=== PATIENT | male | born 1980 | race Caucasian/White ===

== ENCOUNTER 2019-01-25 18:03 | Emergency (ER) | payer SELFPAY ==
[2019-01-25 18:12] VITALS: BP 131/87; PULSE 87; RESP 16; TEMP 36.7; O2SAT 99
--- NOTE | 2019-01-25 18:29 | ED.GENADUL_ITS ---
Discharge Plan Disposition Patient Disposition: HOME Condition: Good Discharge Details Chief Complaint: Abd Prob Clinical Impression: Abdominal pain, epigastric Primary Care Provider: Unknown,Unknown ED Provider: Nils Newton [place] Meds and New Rx's Prescriptions: New metoclopramide HCl 10 mg tablet 10 mg PO Q6H PRN (Reason: nausea and bloating) Qty: 40 RF: 0 omeprazole 40 mg capsule,delayed release(DR/EC) 40 mg PO DAILY Qty: 30 RF: 0 sucralfate [Carafate] 1 gram tablet 1 gm PO QACHS Qty: 120 RF: 0 Discharge Instructions Instructions: Epigastric Pain (ED) Additional Instructions: Work-up here tonight is unremarkable. Laboratory studies, EKG, chest x-ray, abdominal pelvic CT scan show nothing acute. Suspect your epigastric pain is acid related gastric disease. We will start you on medication to treat this and refer you to surgery for endoscopy. You should also follow-up with primary care next week to see how the medications are working. Return to the emergency department if you develop fever, worsening pain, vomiting blood, black or bloody stool. Referrals: [facility] [Provider Group] Pretty Camacho MD [ [facility] STAFF PHYSICIAN] - Medical Decision Making <Nannette Barrow DO - Last Filed: 01/25/19 20:13> 1820 -- 38yo M w/ no past medical history presents with upper abdominal pain for the past 3 weeks. Intermittent radiation around to his back down into his groin. He was seen at a clinic recently for the same symptoms but states he had blood work which noted his liver and gallbladder to be normal. He has not had any imaging. Pain worse with eating. He does admit to heavy alcohol use for years but states he stopped this several weeks ago. Vitals within normal limits. He has epigastric and right upper quadrant tenderness. Lungs clear. exam not done on my evaluation prior to imaging. Differential diagnosis includes cholelithiasis, cholecystitis, peptic ulcer disease, gastritis, esophagitis, GERD, pancreatitis. Will place an IV, bolus IV fluids, screening labs and CT abdomen and pelvis. We will also give a dose of Pepcid, Zofran and GI cocktail and reassess. 1999 --Case endorsed to Dr. Newton to follow-up on labs and imaging and final disposition. Medical Records Medical records reviewed: Yes I reviewed the patient's medical records. <Nils Newton MD - Last Filed: 01/25/19 22:51> Patient signed out to me from Dr. Barrow. I did interview the patient. He has epigastric abdominal pain that has been present for about 3 weeks now. He has associated nausea and bloating. Describes the pain as burning. At times radiates into the lower abdomen, upper chest, shoulders. Also has back pain but I think this is a separate issue. He has seen primary care as well as an ED visit to [facility]. He is not on anything currently. He gave up drinking 7 weeks ago. He does still smoke. His exam for me is benign. His laboratory studies are unremarkable including liver function, lipase, troponin. His EKG is normal. A chest x-ray is normal. CT scan of the abdomen pelvis shows an enlarged liver as well as some cysts on the right kidney otherwise unremarkable and nothing acute. At signout Dr. Barrow felt this was likely acid related gastric disease. I am in agreement. She had given a GI cocktail, Pepcid, Zofran which he states initially seemed to help but his symptoms are coming back. We will give him a dose of IV Reglan and oral Carafate. We will plan discharge on Reglan, PPI, Carafate. Will refer to surgery for possible endoscopy. Lab Data Lab results reviewed: Yes I reviewed the patient's lab results. ECG Data Attestation: I personally reviewed and interpreted this ECG (s) as follows: Prior ECG tracings: not available for review Interpretation: Normal sinus rhythm at 68. Normal axis and intervals. Normal ST segments. HPI <Nannette Barrow DO - Last Filed: 01/25/19 20:13> General Mode of arrival: ambulatory . Date/Time Provider Initiated Documentation: 01/25/19 18:24 . Limitations to Documentation: no limitations . Information obtained by: patient . History of Present Illness described as moderate, with intensity rated at 5. Quality is described as dull, and is localized to the abdomen. Patient reports radiation to back (lower back). Patient started experiencing this week(s) (3) and it has been intermittent. No relieving factors improve symptom(s), Eating worsens symptoms . Patient did receive the following treatments prior to arrival, none Related Data Home Medications Medication Instructions Recorded Confirmed metoclopramide HCl 10 mg PO Q6H PRN #40 tab 01/25/19 omeprazole 40 mg PO DAILY #30 cap 01/25/19 sucralfate [Carafate] 1 gm PO QACHS #120 tab 01/25/19 Previous Rx's Medication Instructions Recorded metoclopramide HCl 10 mg PO Q6H PRN #40 tab 01/25/19 omeprazole 40 mg PO DAILY #30 cap 01/25/19 sucralfate [Carafate] 1 gm PO QACHS #120 tab 01/25/19 Allergies Allergy/AdvReac Type Severity Reaction Status Date / Time No Known Allergies Allergy Unverified 01/25/19 18:19 General Stated Complaint: Abd Prob KEYON: 3 Review of Systems <Nannette Barrow DO - Last Filed: 01/25/19 20:13> All systems reviewed & are unremarkable except as noted in HPI and below Constitutional Constitutional: Reports as per HPI, Denies chills and Denies fever(s) Eyes Eyes: Denies blurry vision ENT Ears, Nose, Mouth, and Throat: Denies dizziness, Denies sore throat and Denies throat swelling Cardiovascular Cardiovascular: Denies chest pain and Denies dyspnea Respiratory Respiratory: Denies cough and Denies dyspnea Gastrointestinal Gastrointestinal: Reports abdominal pain, Denies diarrhea and Denies vomiting Genitourinary Genitourinary: Denies hematuria and Denies dysuria Musculoskeletal Musculoskeletal: Denies back pain and Denies numbness Integumentary/Breasts Skin/Breast: Denies lesions and Denies rash Neurologic Neurologic: Denies dizziness, Denies focal weakness and Denies numbness Allergic/Immunologic Allergic/Immunologic: Denies throat swelling PFSH <Nannette Barrow DO - Last Filed: 01/25/19 20:13> Medical History No significant past medical history (Acute) Surgical History No significant past surgical history (Acute) Social History Smoking/Tobacco Use Status: Current every day Tobacco Type: cigarettes Alcohol Intake: former Details: Stopped drinking 7 weeks ago. Had been drinking 6-8 beers daily for years Drug use: Daily Substance use type: marijuana Exam <Nannette Barrow DO - Last Filed: 01/25/19 20:13> Const General: cooperative, healthy appearing and no acute distress HENMT Head: normal to inspection Face and sinus: normal facial exam Eyes General: appearance normal, both eyes and all related structures EOM: EOM intact bilaterally Neck Neck: normal visual inspection and No submandibular swelling Lymphatic: no lymphadenopathy noted Chest Chest: normal inspection of the chest and no tenderness Resp Effort & Inspection: normal respiratory effort and able to speak in complete sentences Auscultation: clear to auscultation bilaterally Cardio Rate: regular rate Rhythm: regular rhythm GI Inspection: normal to inspection Palpation: soft, not firm, not rigid and tender in the epigastrum and in the RUQ Auscultation: normal bowel sounds Skin General skin exam: no rashes or lesions noted Neuro General: alert, awake and oriented x3 Cognition: normal cognition Speech: speech normal Motor: muscle tone normal throughout Sensory Exam: no sensory deficits noted Extrem General: normal to inspection, full ROM, normal capillary refill, no calf tenderness bilaterally and no edema Psych Appearance: grossly normal Mental Status: mental status grossly normal Speech and Movement: speech and movement normal Affect: normal affect Course <Nannette Barrow DO - Last Filed: 01/25/19 20:13> Vital Signs Vital signs: Vital Signs Temperature 98.1 F 01/25/19 18:12 Pulse 87 01/25/19 18:12 Respiratory Rate 16 01/25/19 18:12 Blood Pressure 131/87 01/25/19 18:12 Pulse Oximetry 99 01/25/19 18:12 Temperature 98.1 F 01/25/19 18:12 Temperature Source Skin 01/25/19 18:12 Pulse 87 01/25/19 18:12 Respiratory Rate 16 01/25/19 18:12 Respiratory Effort Non-Labored 01/25/19 18:12 Blood Pressure 131/87 01/25/19 18:12 Blood Pressure Position Sitting 01/25/19 18:12 Pulse Oximetry 99 01/25/19 18:12 Oxygen Delivery Method Room Air 01/25/19 18:12 Oxygen Flow Rate 0 01/25/19 18:12 Pain Level 6 01/25/19 18:12 Sign Out <Nannette Barrow DO - Last Filed: 01/25/19 20:13> Sign Out Data: Sign Out Comment: Follow-up on labs and imaging and final disposition. Last updated by Nannette Barrow DO at 01/25/19 19:55
--- NOTE | 2019-01-25 19:12 | DI.CT_ITS ---
EXAM: CT ABDOMEN PELVIS W CLINICAL HISTORY: upper abdominal pain,RUQ PAIN, NAUSEA TECHNIQUE: Imaging Protocol: Axial computed tomography images with coronal and sagittal reformatted images were created and reviewed CONTRAST MATERIAL: Intravenous: Omnipaque 350 Contrast volume:100 mL contrast route:IV - Oral: No COMPARISON: No exams were available for comparison FINDINGS: ABDOMEN: Lung Bases: Normal where visualized. Liver: Normal density. No measurable mass. Gallbladder and biliary tract: No radiodense calculus or dilation. Pancreas: Normal density, no abnormal calcifications or inflammatory process. Spleen: Normal. Kidneys: Normal size, contour and axis. No radiodense stones or obstructive uropathy. Incidental note is that made of a 1 cm simple cyst in the right kidney. No suspicious renal mass is present. Adrenal glands: No masses seen. Abdominal Aorta: Abdominal portion non-dilated. PELVIS: Bladder: Symmetric distention, no gross wall thickening. Bowel: No obstruction or bowel wall thickening. The appendix is normal in size without evidence of ad jacent mesenteric fat stranding or adjacent fluid collection. Peritoneal cavity: No ascites, collection or mesenteric inflammatory response. Bones: Within normal limits. Reproductive organs: Within normal limits. Lymph nodes: Unremarkable. Impression: No acute abnormality. DATA REPOSITORY: All CT scans at this facility are submitted to the National Radiology Data Registry (NRDR) Dose Index Registry (DIR) with the [employer] (A[employer]). RADIATION OPTIMIZATION: All CT scans at this facility use at least one of these dose optimization te chniques: automated exposure control; mA and/or kV adjustment per patient size (includes targeted exa ms where dose is matched to clinical indication); or iterative reconstruction.
[2019-01-25] MEDS: Ondansetron 4 MG/2 ML VIAL IVP (19:57)
[2019-01-25] MEDS: FAMOTIDINE 20 MG/50 ML BAG 200 MG IVPB (19:57)
[2019-01-25] MEDS: Normal Saline 1,000 ML 1000 ML IV (19:58)
--- NOTE | 2019-01-25 20:06 | DI.RAD_ITS ---
EXAM: XR CHEST 2V PA LATERAL INDICATION: burning in chest, r/o acute disease,RUQ AND CHEST AND SHOULDER PAIN COMPARISON: No exams were available for comparison TECHNIQUE: 2D digital imaging was performed. FINDINGS: The heart size and pulmonary vasculature are within normal limits. The lungs are clear. No pleural effusion or pneumothorax is present. The bones are unremarkable. IMPRESSION: No acute pulmonary process.
[2019-01-25] MEDS: Omnipaque 350 MG/ML 100 ML BTL IJ (20:13)
[2019-01-25 20:22] LABS: Abs Immature Grans 0.01 k/cumm (0.0-0.09); Absolute Basophil Count 0.03 k/cumm (0.0-0.2); Absolute Eosinophil Count 0.32 k/cumm (0.0-0.7); Absolute Lymphocyte Count 2.07 k/cumm (1.2-3.4); Absolute Monocyte Count 0.55 k/cumm (0.11-0.7); Absolute Neutrophil Count 2.64 k/cumm (1.2-6.7); Basophils % 0.5; Eosinophils % 5.7; HCT 44.2 % (40.0-50.0); HGB 15.3 g/dL (13.5-17.5); Immature Grans % 0.2; Lymphocytes % 36.8; Mean Corp. HGB Concentration 34.6 g/dL (32.0-36.0); Mean Corpuscular Volume 95.3 fL (80-95); Mean Platelet Volume 10.7 fL (8.0-11.0); Monocytes % 9.8; Platelet Count 299 x1000/uL (130-400); RBC 4.64 m/cumm (4.50-6.00); RBC Distribution Width 11.4 % (11.8-14.1); White Blood Cell Count 5.62 k/cumm (4.4-10.8)
[2019-01-25 20:30] LABS: ALT 23 U/L (16-63); AST 16 U/L (15-37); Albumin 4.4 g/dL (3.4-5.0); Alkaline Phosphatase 52 U/L (46-116); Anion Gap 7.4 mmol/L (3-11); BUN 16 mg/dL (7-18); Bilirubin, Total 0.2 mg/dL (0.2-1.0); CO2 28.6 mmol/L (21.0-32.0); CREATININE 0.81 mg/dL (0.70-1.30); Chloride 103 mmol/L (98-107); Glucose 78 mg/dL (70-100); Lipase 141 U/L (73-393); Magnesium 2.1 mg/dL (1.8-2.4); Sodium 139 mmol/L (136-145); Total Protein 7.8 g/dL (6.4-8.2)
[2019-01-25 20:31] LABS: Troponin I < 0.05 ng/mL (0.00-0.06)
--- NOTE | 2019-01-25 20:42 | DI.VRAD_ITS ---
PROCEDURE INFORMATION: Exam: CT Abdomen And Pelvis With Contrast Exam date and time: 01/25/2019 8:14 PM Clinical history: 38 years old, male; Abdominal tenderness and other: Upper abdominal pain, R/O pancreatitis/cholelithiasis/cystitis; Additional info: Upper abdominal pain R/O pancreatitis/cholelithiasis/cystitis TECHNIQUE: Imaging protocol: Computed tomography of the abdomen and pelvis with intravenous contrast. Radiation optimization: All CT scans at this facility use at least one of these dose optimization techniques: automated exposure control; mA and/or kV adjustment per patient size (includes targeted exams where dose is matched to clinical indication); or iterative reconstruction. Contrast material: OMNIPAQUE 350; Contrast volume: 100 ml; Contrast route: IV; COMPARISON: No relevant prior studies available. FINDINGS: Lungs: The visualized portions of the lung bases demonstrate no acute disease. Liver: There is mild enlargement of the liver. No acute liver pathology. Gallbladder and bile ducts: Normal. No calcified stones. No ductal dilation. Pancreas: Normal. No ductal dilation. Spleen: Normal. No splenomegaly. Adrenals: Normal. No mass. Kidneys and ureters: There is a 1 cm right simple renal cyst. A smaller right renal hypodense lesion also favors a cyst. No acute renal findings. No obstructive uropathy. Stomach and bowel: There is no evidence of intestinal perforation or obstruction. There is moderately excessive colonic stool content. Appendix: No evidence of appendicitis. Intraperitoneal space: Unremarkable. No free air. No significant fluid collection. Vasculature: Unremarkable. No abdominal aortic aneurysm. Lymph nodes: Unremarkable. No enlarged lymph nodes. Bladder: Unremarkable as visualized. Reproductive: Unremarkable as visualized. Bones/joints: No acute abnormality or aggressive osseous lesion. Soft tissues: Unremarkable. IMPRESSION: Negative for acute abdominopelvic pathology. Dictated and Authenticated by: Karlos Nava MD. Ordering:JOVANI Brunson MD
--- NOTE | 2019-01-25 20:44 | DI.VRAD_ITS ---
PROCEDURE INFORMATION: Exam: XR Chest, 2 Views Exam date and time: 01/25/2019 8:26 PM Clinical history: 38 years old, male; Chest pain and sternal or substernal pain; Other: Anterior central chest pain with movement, ruq pain; Additional info: Upper abdominal pain R/O pancreatitis/cholelithiasis/cystitis TECHNIQUE: Imaging protocol: XR of the chest Views: 2 views. COMPARISON: No relevant prior studies available. FINDINGS: Lungs: Unremarkable. No consolidation. Pleural space: Unremarkable. No pleural effusion. No pneumothorax. Heart/Mediastinum: Unremarkable. No cardiomegaly. Bones/joints: Unremarkable. IMPRESSION: No acute findings. Dictated and Authenticated by: Karlos Nava MD. Ordering:JOVANI Brunson MD
[2019-01-25] MEDS: Normal Saline 50 ML 200 ML (21:29)
[2019-01-25] MEDS: Sucralfate 1 GM TAB PO (21:29)
[2019-01-25] MEDS: Metoclopramide 10 MG/2 ML VIAL IVP (21:29)
[2019-01-25 21:30] VITALS: BP 111/65; PULSE 68; RESP 97
[2019-01-25 21:52] VITALS: BP 132/78; PULSE 81; RESP 18; TEMP 36.4; O2SAT 98
== END 2019-01-25 21:55 | disposition home or self-care (01) ==
PROVIDERS: Physician Assistant; Emergency Provider Emergency Medicine
DX: R10.13 Epigastric pain (principal); F17.210 Nicotine dependence, cigarettes, uncomplicated
CPT/HCPCS: 36415; 80053; 83690; 93005; 96361; 96365; 96375; 99285; 71046; 74177; 83735; 84484; 85025; 93010; J2405; J2765; J3490